=== PATIENT | male | born 1955 | race Caucasian/White ===

== ENCOUNTER → 2018-09-15 | Outpatient (CLI) | payer BC | LOC: M WUC 16:19 | PROVIDERS: ATTEND Urology | DX: R97.20 Elevated prostate specific antigen [PSA] (principal) ==

== ENCOUNTER → 2019-04-12 | Outpatient (CLI) | payer BC, MEDICARE | LOC: M WUC 10:01 | PROVIDERS: ATTEND Urology | DX: M40.30 Flatback syndrome, site unspecified (principal) ==

== ENCOUNTER → 2020-05-28 | Outpatient (CLI) | payer MEDICARE ==
[2020-05-28 13:37] LABS: PROSTATIC SPECIFIC AG MONITOR 4.23 NG/ML (< 4.00)
== END ==
LOC: M WUC 09:49
PROVIDERS: ATTEND Urology
DX: N40.3 Nodular prostate with lower urinary tract symptoms (principal); R97.20 Elevated prostate specific antigen [PSA]; E29.1 Testicular hypofunction

== ENCOUNTER → 2021-06-11 | Outpatient (CLI) | payer MEDICARE ==
[~2021-06-11] MED LIST: BENA25CA4 PO; D3 S1CAP3 PO; LISI10TA24 PO; OMEP40CA5 PO; QC F0.52 PO; ROSU10TA6 PO
[2021-06-11 12:22] LABS: PROSTATIC SPECIFIC AG MONITOR 4.59 NG/ML (< 4.00)
== END ==
LOC: M WUC 09:30
PROVIDERS: ATTEND Urology
DX: N40.3 Nodular prostate with lower urinary tract symptoms (principal); R97.20 Elevated prostate specific antigen [PSA]; E29.1 Testicular hypofunction

== ENCOUNTER → 2021-06-26 | Outpatient (CLI) | payer MEDICARE ==
[~2021-06-26] MED LIST changes: +LISI10TA15 PO; -LISI10TA24 PO; +OMEP-221 PO; -OMEP40CA5 PO
== END ==
LOC: M LABSMTC 10:07
PROVIDERS: ATTEND Anesthesiology
DX: Z01.812 Encounter for preprocedural laboratory examination (principal); Z11.52 Encounter for screening for COVID-19

== ENCOUNTER 2021-07-01 10:20 | Day surgery (SDC) | payer MEDICARE ==
[~2021-07-01] VITALS: Ht 170.2 cm; Wt 89.4 kg
[~2021-07-01 10:20] MED LIST changes: +NS 1,000 ML IV ONE
[2021-07-01] MEDS ORDERED: LIDOCAINE 2% 100MG/5ML SDV (FOR ANES.) As Ordered ONE (11:21)
[2021-07-01] MEDS ORDERED: propofoL 200 MG/20 ML VIAL As Ordered ONE (11:21)
--- NOTE | 2021-07-01 12:02 | ROOR ---
Patient Name: James Nuñez Procedure Date: 07/01/2021 11:40 AM Date of : 1955 Age: 65 Room: [facility] Gender: Male Note Status: Finalized Procedure: Colonoscopy Indications: High risk colon cancer surveillance: Personal history of colonic polyps Providers: Sharath Elias Jr, MD Referring MD: DEXTER BECKER Requesting Provider: Medicines: Propofol per Anesthesia Complications: No immediate complications. Procedure: Pre-Anesthesia Assessment: - Prior to the procedure, a History and Physical was performed, and patient medications and allergies were reviewed. The patient is competent. The risks and benefits of the procedure and the sedation options and risks were discussed with the patient. All questions were answered and informed consent was obtained. Patient identification and proposed procedure were verified by the physician and the nurse in the pre-procedure area and in the procedure room. Mental Status Examination: alert and oriented. Airway Examination: normal oropharyngeal airway and neck mobility. Respiratory Examination: clear to auscultation. CV Examination: normal. ASA Grade Assessment: II - A patient with mild systemic disease. After reviewing the risks and benefits, the patient was deemed in satisfactory condition to undergo the procedure. The anesthesia plan was to use moderate sedation / analgesia (conscious sedation). Immediately prior to administration of medications, the patient was re-assessed for adequacy to receive sedatives. The heart rate, respiratory rate, oxygen saturations, blood pressure, adequacy of pulmonary ventilation, and response to care were monitored throughout the procedure. The physical status of the patient was re-assessed after the procedure. The Colonoscope was introduced through the anus and advanced to the cecum, identified by appendiceal orifice and ileocecal valve. The colonoscopy was performed without difficulty. The patient tolerated the procedure well. The quality of the bowel preparation was adequate. Findings: The rectum, recto-sigmoid colon, sigmoid colon and descending colon appeared normal. Four polyps were found in the transverse colon, ascending colon and cecum. The polyps were diminutive in size. These polyps were removed with a cold snare. Resection was complete, but the polyp tissue was only partially retrieved. Impression: - The rectum, recto-sigmoid colon, sigmoid colon and descending colon are normal. - Four diminutive polyps in the transverse colon, in the ascending colon and in the cecum, removed with a cold snare. Complete resection. Partial retrieval. Recommendation: - Discharge patient to home (ambulatory). - Repeat colonoscopy in 5 years for surveillance. Procedure Code(s): --- Professional --- 73115, Colonoscopy, flexible; with removal of tumor(s), polyp(s), or other lesion(s) by snare technique Diagnosis Code(s): --- Professional --- Z86.010, Personal history of colonic polyps K63.5, Polyp of colon CPT copyright 2019 [employer]. All rights reserved. The codes documented in this report are preliminary and upon stringed instrument tuner review may be revised to meet current compliance requirements. Sharath Elias MD Sharath Elias Jr, MD 07/01/2021 12:02:32 PM Electronically signed by Sharath Elias Jr, MD Number of Addenda: 0 Note Initiated On: 07/01/2021 11:40 AM Estimated Blood Loss: Estimated blood loss: none.
[2021-07-01 12:19] VITALS: BP 119/71
== END 2021-07-01 12:21 | disposition home or self-care (01) ==
LOC: M OPP 10:20
PROVIDERS: ATTEND Surgery
DX: Z12.11 Encounter for screening for malignant neoplasm of colon (principal); Z86.010 Personal history of colon polyps; K63.5 Polyp of colon; Z79.899 Other long term (current) drug therapy; Z87.891 Personal history of nicotine dependence

== ENCOUNTER → 2022-06-12 | Outpatient (CLI) | payer MEDICARE ==
[~2022-06-12] MED LIST changes: -LISI10TA15 PO; +LISI10TA24 PO; -NS 1,000 ML IV ONE; -OMEP-221 PO; +OMEP40CA5 PO
== END ==
LOC: M WUC 11:20
PROVIDERS: ATTEND Urology
DX: R97.20 Elevated prostate specific antigen [PSA] (principal)

== ENCOUNTER → 2022-12-17 | Outpatient (CLI) | payer MEDICARE ==
[2022-12-17 12:46] LABS: HEMATOCRIT 46.1 % (42.0-52.0); HEMOGLOBIN 15.5 g/dl (13.5-17.5); MEAN CORPUSCULAR HEMOGLOBIN 28.9 pg (27.0-33.0); MEAN CORPUSCULAR HGB CONC 33.6 g/dl (32.0-36.5); MEAN CORPUSCULAR VOLUME 85.8 fl (80.0-96.0); PLATELET COUNT, AUTOMATED 164 10^3/uL (150-450); RED BLOOD COUNT 5.37 10^6/uL (4.30-6.10); WHITE BLOOD COUNT 5.5 10^3/uL (4.0-10.0)
[2022-12-17 12:49] LABS: ALKALINE PHOSPHATASE 55 U/L (46-116); ALT/SGPT 27 U/L (7.0-40); AST/SGOT 20 U/L (<34); BILIRUBIN,TOTAL 0.6 MG/DL (0.3-1.2); BLOOD UREA NITROGEN 14 MG/DL (9-23); CALCIUM LEVEL 9.1 MG/DL (8.3-10.6); CARBON DIOXIDE LEVEL 30 MMOL/L (20-31); CHLORIDE LEVEL 104 MMOL/L (98-107); CHOLESTEROL LEVEL 132 MG/DL (<200); CHOLESTEROL RISK RATIO 4.12 (<5); CREATININE FOR GFR 0.93 MG/DL (0.70-1.30); GLOMERULAR FILTRATION RATE > 60.0 (>49); GLUCOSE, FASTING 107 MG/DL (74-106); LDL CHOLESTEROL 64.8 MG/DL (<100); SODIUM LEVEL 140 MMOL/L (136-145); TRIGLYCERIDES LEVEL 176 MG/DL (<150)
[2022-12-17 12:52] LABS: THYROID STIMULATING HORMONE 1.665 uIU/ML (0.55-4.78)
[2022-12-17 13:45] LABS: HEMOGLOBIN A1c 6.7 % (4.0-6.0)
== END ==
LOC: M WUC 09:10
PROVIDERS: ATTEND Physician Assistant
DX: I10 Essential (primary) hypertension (principal); E78.5 Hyperlipidemia, unspecified; E11.9 Type 2 diabetes mellitus without complications

== ENCOUNTER → 2023-06-17 | Outpatient (CLI) | payer MEDICARE | LOC: M WUC 09:33 | PROVIDERS: ATTEND Urology | DX: R97.20 Elevated prostate specific antigen [PSA] (principal) ==

== ENCOUNTER → 2023-07-01 | Outpatient (CLI) | payer MEDICARE ==
[2023-07-01 11:10] LABS: HEMATOCRIT 46.7 % (42.0-52.0); HEMOGLOBIN 15.8 g/dl (13.5-17.5); MEAN CORPUSCULAR HGB CONC 33.8 g/dl (32.0-36.5); MEAN CORPUSCULAR VOLUME 85.7 fl (80.0-96.0); PLATELET COUNT, AUTOMATED 162 10^3/uL (150-450); RED BLOOD COUNT 5.45 10^6/uL (4.30-6.10); WHITE BLOOD COUNT 5.4 10^3/uL (4.0-10.0)
[2023-07-01 11:23] LABS: HEMOGLOBIN A1c 6.4 % (4.0-6.0)
[2023-07-01 11:40] LABS: ALBUMIN 4.1 G/DL (3.2-5.2); ALKALINE PHOSPHATASE 52 U/L (46-116); ALT/SGPT 27 U/L (7.0-40); AST/SGOT 20 U/L (<34); BILIRUBIN,TOTAL 0.5 MG/DL (0.3-1.2); BLOOD UREA NITROGEN 11 MG/DL (9-23); CARBON DIOXIDE LEVEL 33 MMOL/L (20-31); CHLORIDE LEVEL 104 MMOL/L (98-107); CHOLESTEROL LEVEL 150 MG/DL (<200); CHOLESTEROL RISK RATIO 4.28 (<5); CREATININE FOR GFR 0.92 MG/DL (0.70-1.30); GLOMERULAR FILTRATION RATE > 60.0 (>49); GLUCOSE, FASTING 112 MG/DL (74-106); LDL CHOLESTEROL 81.4 MG/DL (<100); POTASSIUM SERUM 3.9 MMOL/L (3.5-5.1); SODIUM LEVEL 141 MMOL/L (136-145); TOTAL PROTEIN 6.9 G/DL (5.7-8.2); TRIGLYCERIDES LEVEL 168 MG/DL (<150)
== END ==
LOC: M WUC 08:07
PROVIDERS: ATTEND Physician Assistant
DX: E11.9 Type 2 diabetes mellitus without complications (principal); E78.5 Hyperlipidemia, unspecified; I10 Essential (primary) hypertension

== ENCOUNTER → 2023-10-27 | Outpatient (REF) | payer MEDICARE ==
[2023-10-27 14:50] LABS: HEMOGLOBIN A1c 6.5 % (4.0-6.0)
== END ==
LOC: M LABWUC 12:53
PROVIDERS: ATTEND Physician Assistant
DX: E11.9 Type 2 diabetes mellitus without complications (principal)

== ENCOUNTER → 2024-06-08 | Outpatient (CLI) | payer MEDICARE ==
[~2024-06-08] MED LIST changes: -ROSU10TA6 PO; +ROSU10TA61 PO
[2024-06-08 16:51] LABS: HEMOGLOBIN A1c 6.4 % (4.0-6.0)
== END ==
LOC: M WUC 11:16
PROVIDERS: ATTEND Physician Assistant
DX: E11.9 Type 2 diabetes mellitus without complications (principal); M25.562 Pain in left knee; M25.512 Pain in left shoulder

== ENCOUNTER → 2024-06-15 | Outpatient (REF) | payer MEDICARE | LOC: M LABWUC 16:25 | PROVIDERS: ATTEND Physician Assistant | DX: M13.0 Polyarthritis, unspecified (principal) ==

== ENCOUNTER → 2024-06-16 | Outpatient (REF) | payer MEDICARE | LOC: M LABWUC 16:25 | PROVIDERS: ATTEND Physician Assistant | DX: Z13.0 Encounter for screening for diseases of the blood and blood-forming organs and certain disorders involving the immune mechanism (principal) ==

== ENCOUNTER → 2024-11-22 | Outpatient (CLI) | payer MEDICARE ==
[2024-11-22 13:16] LABS: HEMATOCRIT 45.9 % (42.0-52.0); HEMOGLOBIN 15.6 g/dl (13.5-17.5); MEAN CORPUSCULAR HEMOGLOBIN 29.2 pg (27.0-33.0); MEAN CORPUSCULAR VOLUME 85.8 fl (80.0-96.0); PLATELET COUNT, AUTOMATED 180 10^3/uL (150-450); RED BLOOD COUNT 5.35 10^6/uL (4.30-6.10)
[2024-11-22 13:23] LABS: ALBUMIN 4.2 G/DL (3.2-5.2); ALKALINE PHOSPHATASE 66 U/L (40-129); ALT/SGPT 40 U/L (7.0-40); AST/SGOT 31 U/L (<34); BILIRUBIN,TOTAL 0.6 MG/DL (0.3-1.2); BLOOD UREA NITROGEN 11 MG/DL (9-23); CALCIUM LEVEL 9.2 MG/DL (8.3-10.6); CARBON DIOXIDE LEVEL 31 MMOL/L (20-31); CHLORIDE LEVEL 103 MMOL/L (98-107); CHOLESTEROL LEVEL 166 MG/DL (<200); CHOLESTEROL RISK RATIO 4.95 (<5); CREATININE FOR GFR 0.91 MG/DL (0.70-1.30); GLOMERULAR FILTRATION RATE > 90.0 (>42); GLUCOSE, FASTING 151 MG/DL (74-106); HDL CHOLESTEROL 33.5 MG/DL (>40); LDL CHOLESTEROL 71.7 MG/DL (<100); NON-HDL-C 132.5 MG/DL; POTASSIUM SERUM 4.3 MMOL/L (3.5-5.1); SODIUM LEVEL 142 MMOL/L (136-145); TOTAL PROTEIN 7.3 G/DL (5.7-8.2); TRIGLYCERIDES LEVEL 304 MG/DL (<150)
[2024-11-22 13:26] LABS: THYROID STIMULATING HORMONE 2.116 uIU/ML (0.55-4.78)
[2024-11-22 13:56] LABS: HEMOGLOBIN A1c 7.3 % (4.0-6.0)
[2024-11-23 07:06] LABS: WHITE BLOOD COUNT 5.6 10^3/uL (4.0-10.0)
== END ==
LOC: M WUC 08:44
PROVIDERS: ATTEND Physician Assistant
DX: E11.9 Type 2 diabetes mellitus without complications (principal); E78.5 Hyperlipidemia, unspecified; I10 Essential (primary) hypertension

== ENCOUNTER → 2025-01-31 | Outpatient (CLI) | payer MEDICARE | LOC: M RAD 10:34 | PROVIDERS: ATTEND Physician Assistant Medical | DX: N40.1 Benign prostatic hyperplasia with lower urinary tract symptoms (principal) ==

== ENCOUNTER → 2025-02-22 | Outpatient (REF) | payer MEDICARE ==
[2025-02-22 13:11] LABS: ESTIMATED AVERAGE GLUCOSE 137.0 MG/DL (60-110)
== END ==
LOC: M LABWUC 12:11
PROVIDERS: ATTEND Physician Assistant
DX: E11.9 Type 2 diabetes mellitus without complications (principal)

== ENCOUNTER → 2025-04-17 | Outpatient (CLI) | payer MEDICARE ==
[2025-04-17 12:26] LABS: BASO # 0.0 10^3/uL (0.0-0.2); BASO % 0.6 % (0.0-1.0); EOS # 0.2 10^3/uL (0.0-0.5); EOS % 4.5 % (0.0-3.0); LYMPH # 1.6 10^3/uL (1.5-5.0); LYMPH % 30.2 % (24.0-44.0); MONO # 0.4 10^3/uL (0.0-0.8); MONO % 7.4 % (2.0-8.0); NEUTROPHILS # 2.9 10^3/uL (1.5-8.5); NEUTROPHILS % 56.7 % (36.0-66.0); PLATELET COUNT, AUTOMATED 169 10^3/uL (150-450)
[2025-04-17 12:28] LABS: APPEARANCE, URINE CLEAR (CLEAR); BACTERIA, URINE AUTO NEGATIVE (NEGATIVE); BILIRUBIN, URINE AUTO NEGATIVE (NEGATIVE); BLOOD, URINE BLOOD NEGATIVE (NEGATIVE); GLUCOSE, URINE (UA) AUTO 3+ mg/dL (NEGATIVE); KETONE, URINE AUTO NEGATIVE (NEGATIVE); LEUKOCYTE ESTERASE, URINE AUTO NEGATIVE (NEGATIVE); NITRITE, URINE AUTO NEGATIVE (NEGATIVE); PROTEIN, URINE AUTO NEGATIVE (NEGATIVE); RBC, URINE AUTO 1 /HPF (0-3); SPECIFIC GRAVITY URINE AUTO 1.023 (1.002-1.035); SQUAMOUS EPITHELIAL CELL UR AU 0 /HPF (0-6); UROBILINOGEN, URINE AUTO 0.2 mg/dL (0.0-2.0); WBC, URINE AUTO 1 /HPF (0-3)
[2025-04-17 12:57] LABS: ALT/SGPT 22 U/L (7.0-40); AST/SGOT 23 U/L (<34); CALCIUM LEVEL 9.1 MG/DL (8.3-10.6); CARBON DIOXIDE LEVEL 32 MMOL/L (20-31); CHLORIDE LEVEL 100 MMOL/L (98-107); CREATININE FOR GFR 0.89 MG/DL (0.70-1.30); GLOMERULAR FILTRATION RATE > 90.0 (>42); POTASSIUM SERUM 3.8 MMOL/L (3.5-5.1); SODIUM LEVEL 141 MMOL/L (136-145)
== END ==
LOC: M WUC 10:12
PROVIDERS: ATTEND Physician Assistant
DX: Z01.818 Encounter for other preprocedural examination (principal); E11.9 Type 2 diabetes mellitus without complications

== ENCOUNTER → 2025-07-12 | Outpatient (CLI) | payer MEDICARE ==
[~2025-07-12] MED LIST changes: -ROSU10TA61 PO; +ROSU10TA90 PO
[2025-07-12 17:33] LABS: ESTIMATED AVERAGE GLUCOSE 146.0 MG/DL (60-110)
== END ==
LOC: M WUC 15:44
PROVIDERS: ATTEND Physician Assistant
DX: E11.9 Type 2 diabetes mellitus without complications (principal)